=== PATIENT | female | born 1990 | race Caucasian/White ===

== ENCOUNTER 2018-12-14 17:33 | Emergency (ER) | payer OTHER ==
[~2018-12-14] VITALS: Ht 165.1 cm; Wt 56.8 kg
[2018-12-14 17:54] VITALS: BP 121/84; PULSE 78; TEMP 98.1
== END 2018-12-14 18:21 | disposition left against medical advice (07) ==
LOC: COL.ER 17:33
DX: T14.90XA Injury, unspecified, initial encounter (principal); X58.XXXA Exposure to other specified factors, initial encounter